=== PATIENT | female | born 2005 | race Caucasian/White ===

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

== ENCOUNTER 2025-04-26 10:01 | Emergency (ER) | payer BC, SELFPAY ==
--- OUTSIDE RECORDS SUMMARY | 2025-04-26 10:04 | XMS_ITS | Clinical Summary ---
Author Organization [facility] Address [address] [place] [id number] Care Team Providers Care Yarn Conditioner Name Role Phone Tammie Garland MD Primary Care Provider [phone] Allergies No known active allergies Medications Escitalopram Oxalate (LEXAPRO PO)Indications: Depression Take 20 mg by mouth At Bedtime Active melatonin 3 MG tabletIndicatio ns:Major depressive disorder with single episode, in partial remission Take 1 tablet (3 mg) by mouth nightly as needed 7 Active Additional Information Patient not taking.Reported on 07/15/2022 buPROPion (WELLBUTRIN XL) 150 MG 24 hr tabletIndicatio ns:Major depressive disorder with single episode, in partial remission Take 1 tablet (150 mg) by mouth daily 30 tablet 7 Active Additional Information Patient not taking.Reported on 07/15/2022 Active Problems Problem Noted Date Diagnosed Date Depression 03/25/2017 Social History Tobacco Use Types Packs/Day Years Used Date Smoking Tobacco: Never Assessed Adolescent Education Answer Date Record ed Getting School Help Needed Not on file 07/16 Comments No Sex and Gender Information Value Date Recorded Sex Assigned at Not on file Legal Sex Female 10:05 AM CDT Gender Identity Not on file Sexual Orientation Not on file Last Filed Vital Signs Vital Sign Reading Time Taken Comments Blood Pressure 123/72 07/15/2022 11:10 AM CDT Pulse 78 05/23/2022 9:13 PM CDT Temperature 36.7 C (98.1 F) 05/23/2022 9:13 PM CDT Respiratory Rate 20 05/23/2022 9:13 PM CDT Oxygen Saturation 100% 05/23/2022 9:13 PM CDT Inhaled Oxygen Concentration - - Weight 106.6 kg (235 lb) 07/15/2022 11:10 AM CDT Height 172.7 cm (5' 8) 07/15/2022 11:10 AM CDT Body Mass Index 35.73 07/15/2022 11:10 AM CDT Plan of Treatment Health Maintenance Due Date Last Done Comments ADVANCE CARE PLANNING 2004 ANNUAL REVIEW OF HM ORDERS 2004 CHLAMYDIA SCREENING 2004 DTAP/TDAP/TD VACCINE (3 - Td or Tdap) 03/25/2017 09/24/2016, 04/30/2008 HEPATITIS B VACCINE (2 of 3 - 3-dose series) 05/05/2017 04/07/2017 HPV VACCINE (2 - 2-dose series) 10/07/2017 04/07/2017 HIV SCREENING 01/24/2019 MENINGITIS B VACCINE (1 of 2 - Standard) 2020 HEPATITIS C SCREENING 01/24/2022 YEARLY PREVENTIVE VISIT 05/12/2023 05/12/2022 COVID-19 VACCINE (1 - 2023-2 5 season) 2024 PHQ-2 (once per calendar year) 2024 PAP 01/24/2025 INFLUENZA VACCINE (Season Ended) 2025 ZOSTER VACCINE (1 of 2) 01/24/2054 MENINGITIS VACCINE Aged Out 09/24/2016, 09/24/2016 No longer eligible based on patient's age to complete this topic PNEUMOCOCCAL VACCINE: PEDIATRICS (0 to 5 YEARS) AND AT-RISK PATIENTS (6 to 49 YEARS) Aged Out No longer eligible b ased on patient's age to complete this topic Insurance [facility] OUT OF STATE [facility] OF STATE Care Teams Yarn Conditioner Relationship Specialty Start Date End Date Tammie Garland MD [facility] [address] [facility] [address] [place], [place] [id number] PCP - General Pediatrics 03/25/17
[2025-04-26 10:11] VITALS: BP 113/75; PULSE 76; RESP 18; TEMP 36.8; O2SAT 99; BMI 34.5
--- NOTE | 2025-04-26 10:23 | CRLHL7_ITS ---
For Patients: As a result of the Cures Act, medical imaging exams and procedure reports are released immediately into your electronic medical record. You may view this report before your referring provider. If you have questions, please contact your health care provider. Indication: Injury Technique: A total of three views of the left foot were acquired. Comparison: None Findings: Bones: Alignment is normal. No fractures or bone lesions. Joint spaces: Unremarkable. Soft tissues: Soft tissue swelling. No gas within soft tissues. No radiopaque foreign body Impression: No acute fracture, dislocation or destructive process.Soft tissue swelling. No gas within soft tissues. No radiopaque foreign body. Dictated by Armaan Lopez MD @ 04/26/2025 10:51:02 AM (Electronically Signed)
--- NOTE | 2025-04-26 10:42 | ED_ITS ---
HPI - General Adult General Chief complaint: Extremity Pain/Injury, Lower Stated complaint: possible broken left foot Time Seen by Provider: 04/26/25 10:03 Source: patient Mode of arrival: ambulatory Limitations: no limitations History of Present Illness HPI narrative: 20-year-old female presenting today with left foot pain. Patient states that her horse stepped on her foot. Denies other injury. Related Data Home Medications ?Medication ?Instructions ?Recorded ?Confirmed No Known Home Medications 04/26/25 0701/16 Allergies Allergy/AdvReac Type Severity Reaction Status Date / Time No Known Drug Allergies Allergy Verified 09/29/23 14:21 Review of Systems Status of ROS: Reports: 6 or more systems reviewed and unremarkable except as noted in History and below [facility] Social History Smoking Status: Never smoker Do you use any of these nicotine containing products: Vaping Products How often do you have a drink containing alcohol: never AUDIT-C Alcohol total score: 0 Non-prescribed substance use: denies use Exam Narrative: Exam Narrative: Well-nourished well-developed patient in no acute distress. Alert and oriented. Answers questions appropriately. Mood and affect are appropriate. Thoughts are goal oriented and rational. No tangential or magical thinking noted. Patient speaks in full sentences without needing to catch her breath. HEENT: Normocephalic atraumatic. Extraocular muscles are intact. Conjunctivae are moist without any icterus noted. Moist mucous membranes. Extremities: Patient's left foot has swelling over the dorsum with a slight abrasion present. She has tenderness over the entire dorsum of the foot. No tenderness over the toes. Normal ankle. No significant tenderness over the plantar surface of the foot. Const: Vital Signs, click to edit/add: Vital Signs - 24 hr 04/26/25 10:11 Temperature 98.2 F Pulse Rate [Pulse Oximeter] 76 Respiratory Rate 18 Blood Pressure [Ri ght Upper Arm] 113/75 Pulse Oximetry 99 Oxygen Delivery Me thod Room Air Course Course ED Course: X-ray, read by me, does not show any acute fractures. Vital Signs Vital signs: Initial Vital Signs Temperature 98.2 F 04/26/25 10:11 Temperature Source Temporal Artery Scan 04/26/25 10:11 Pulse Rate 76 04/26/25 10:11 Respiratory Rate 18 04/26/25 10:11 Blood Pressure 113/75 04/26/25 10:11 Blood Pressure Mean 87 04/26/25 10:11 Blood Pressure Position Sitting 04/26/25 10:11 Pulse Oximetry 99 04/26/25 10:11 Oxygen Delivery Method Room Air 04/26/25 10:11 Vital Signs Temperature 98.2 F 04/26/25 10:11 Pulse Rate 76 04/26/25 10:11 Respiratory Rate 18 04/26/25 10:11 Blood Pressure 113/75 04/26/25 10:11 Pulse Oximetry 99 04/26/25 10:11 Oxygen Delivery Method Room Air 04/26/25 10:11 Temperature 98.2 F 04/26/25 10:11 Pulse Rate 76 04/26/25 10:11 Respiratory Rate 18 04/26/25 10:11 Blood Pressure 113/75 04/26/25 10:11 Pulse Oximetry 99 04/26/25 10:11 Oxygen Delivery Method Room Air 04/26/25 10:11 Medical Decision Making MDM Narrative Medical decision making narrative: 20-year-old female with soft tissue injury and contusion to the foot. Discussed symptomatic treatment. Imaging Data X-ray foot: Attestation: I have reviewed the pertinent imaging results. Radiologist's impression: Technique: A total of three views of the left foot were acquired. Comparison: None Findings: Bones: Alignment is normal. No fractures or bone lesions. Joint spaces: Unremarkable. Soft tissues: Soft tissue swelling. No gas within soft tissues. No radiopaque foreign body Impression: No acute fracture, dislocation or destructive process.Soft tissue swelling. No gas within soft tissues. No radiopaque foreign body. Discharge Plan Discharge Clinical Impression: Foot injury Patient Disposition: Home, Self-Care Condition: Stable Additional Instructions: No broken bones were seeing on x-ray today. Elevate foot as much as possible today and tomorrow. Okay to use ibuprofen as needed/as directed for discomfort. Ice 15- 20 minutes at a time, 3 times per day today. Do not apply ice directly to the skin. Prescriptions: No Action No Known Home Medications Follow Up/Referrals: Provider,Not a Local [Primary Care Provider, Family Practice] Stand Alone Forms: [facility] Info Instructions
== END 2025-04-26 11:03 | disposition home or self-care (01) ==
PROVIDERS: Emergency Provider Family Medicine
DX: S90.32XA Contusion of left foot, initial encounter (principal); W55.12XA Struck by horse, initial encounter
CPT/HCPCS: 73630; 99283; 99284